=== PATIENT | male | born 1965 | race Caucasian/White ===

== ENCOUNTER → 2017-07-12 | Outpatient (CLI) | payer OTHER | END | disposition home or self-care (01) | LOC: CFH 10:13 | PROVIDERS: ATTEND Internal Medicine Cardiovascular Disease | DX: I48.91 Unspecified atrial fibrillation (principal) | CPT/HCPCS: 93306 ==

== ENCOUNTER 2020-02-19 06:10 | Day surgery (SDC) | payer OTHER ==
[~2020-02-19] VITALS: Ht 172.7 cm; Wt 77.3 kg
[2020-02-19] MEDS ORDERED: SODIUM CHLORIDE 0.9% 1,000 ML IV SCH (06:37)
[2020-02-19] MEDS ORDERED: ALPR0.5T PO (06:45)
[2020-02-19] MEDS ORDERED: LORA10CA PO (06:45)
[2020-02-19] MEDS ORDERED: LEVO200T5 PO (06:45)
[2020-02-19 06:46] VITALS: BP 140/104
[2020-02-19] MEDS ORDERED: PROP10TA16 PO (06:46)
[2020-02-19 07:17] LABS: BASOPHILS # (AUTO) 0.02 x10^3/uL (0-0.1); BASOPHILS % (AUTO) 1 % (0-1); EOSINOPHILS % (AUTO) 3 % (1-7); LYMPHOCYTES # (AUTO) 1.46 x10^3/uL (1-3.4); LYMPHOCYTES % (AUTO) 37 % (22-44); MD NO; MEAN CORPUSCULAR HEMOGLOBIN 30.1 pg (27.5-34.5); MEAN CORPUSCULAR HGB CONC 33.7 g/dL (33.2-36.2); MEAN CORPUSCULAR VOLUME 89.4 fL (81-97); MEAN PLATELET VOLUME 7.5 fL (7.4-10.4); MONOCYTES # (AUTO) 0.37 x10^3/uL (0.2-0.8); MONOCYTES % (AUTO) 9 % (2-9); NEUTROPHILS # (AUTO) 2.01 x10^3/uL (1.8-6.8); NEUTROPHILS % (AUTO) 51 % (42-75); PLATELET COUNT 305 x10^3/uL (130-400); RED BLOOD COUNT 5.14 x10^6/uL (4.38-5.82); RED CELL DISTRIBUTION WIDTH 12.8 % (9.4-14.8)
[2020-02-19 07:25] LABS: ANION GAP 6 mmol/L (5-15); CALCIUM 9.2 mg/dL (8.5-10.1); CHLORIDE 109 mmol/L (98-107); CREATININE 1.07 mg/dL (0.7-1.3)
[2020-02-19] MEDS ORDERED: ADENOSINE 6 MG/2 ML ONE (07:55)
[2020-02-19] MEDS ORDERED: MIDAZOLAM 1 MG/ML, 5ML ONE (07:55)
[2020-02-19] MEDS ORDERED: FENTANYL PF 100 MCG/2ML ONE (07:55)
[2020-02-19] MEDS ORDERED: LIDOCAINE 2%, 20ML ONE (07:56)
[2020-02-19] MEDS ORDERED: ISOPROTERENOL 0.2MG/ML, 5ML ONE (07:56)
[2020-02-19] MEDS ORDERED: PROPRANOLOL 10 MG TABLET PO PRN (10:30)
[2020-02-20] MEDS ORDERED: LEVOTHYROXINE 200 MCG TABLET PO SCH (09:00)
[2020-02-20] MEDS ORDERED: LORATADINE PO SCH (09:00)
== END 2020-02-19 14:53 | disposition home or self-care (01) ==
LOC: CACL 06:10
PROVIDERS: ATTEND Internal Medicine Cardiovascular Disease
DX: I49.3 Ventricular premature depolarization (principal); Z11.59 Encounter for screening for other viral diseases; I47.2 Ventricular tachycardia; I48.91 Unspecified atrial fibrillation; Z79.890 Hormone replacement therapy; Z79.899 Other long term (current) drug therapy
CPT/HCPCS: 36415; 71046; 80048; 85025; 87635; 93623; 93654; C1730; C1769; C1894; C2630; J0153; J2250; J3010